=== PATIENT | female | born 2000 | race Caucasian/White ===

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

== ENCOUNTER → 2022-12-20 10:23 | Outpatient (BNVA) | payer OTHER, MEDICAID, SELFPAY | PROVIDERS: PCP Pediatrics; Visit Provider Physician Assistant ==

== ENCOUNTER 2023-05-18 21:56 | Emergency (ER) | payer OTHER, SELFPAY ==
--- NOTE | ~2023-05-18 | CT_ITS ---
EXAMINATION: CT head/brain wo IV con CLINICAL INFORMATION: Trauma COMPARISON: CT head 07/20 2021 TECHNIQUE: Contiguous axial imaging was performed from the skull base to vertex without intravenous contrast. Sagittal and coronal reformatted images were obtained. This CT examination was performed using dose optimization techniques as appropriate, variously including the following: * Automated exposure control * Adjustment of mA and/or kV according to patient size (this includes techniques or standardized protocols for targeted exams where dose is matched to indication/reason for exam; i.e. extremities or head) Use of iterative reconstruction technique DLP: 685 mGy-cm FINDINGS: Streak artifact from metallic bilateral ear and right facial piercings somewhat degrades assessment. The ventricles and sulci are normal in size and configuration without significant volume loss or hydrocephalus. No abnormal attenuation or territorial edematous infarction within limitations of streak artifact. Again seen prominent perivascular space in the right basal ganglia. No acute intracranial hemorrhage or extra-axial fluid collection. No mass lesion, significant mass effect, or herniation pattern. The orbits are grossly normal. Mild mucosal disease in the maxillary sinuses. No mastoid effusion. Osseous structures are intact. CT/CT head/brain wo IV con IMPRESSION: No acute intracranial abnormality.
[2023-05-18 22:05] VITALS: BP 128/88; PULSE 103; O2SAT 98
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
[2023-05-18 22:15] VITALS: BMI 33.9
[2023-05-18 22:16] VITALS: BP 91/55; PULSE 106; RESP 18; TEMP 36.9; O2SAT 96
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
[2023-05-18] MEDS: Acetaminophen 325 MG TABLET 975 MG PO (23:23)
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
[2023-05-19] VITALS: BP 00/00; PULSE 0; RESP 0; TEMP -17.7; TEMP 0; O2SAT 0
== END 2023-05-19 00:02 ==
PROVIDERS: Emergency Provider Emergency Medicine
DX: S00.12XA Contusion of left eyelid and periocular area, initial encounter (principal); X58.XXXA Exposure to other specified factors, initial encounter; Y93.9 Activity, unspecified; Y92.9 Unspecified place or not applicable; Y99.9 Unspecified external cause status
CPT/HCPCS: 70450; 99284